=== PATIENT | male | born 1930 | race Caucasian/White ===

== ENCOUNTER 2017-01-12 09:15 | Day surgery (SDC) | payer OTHER ==
[~2017-01-12] VITALS: Ht 175.3 cm; Wt 95.0 kg
[~2017-01-12 09:15] MED LIST: ASPIR 8181 M1 PO; CRESTOR10 MG PO; LOPRESSOR100 M1 PO
[2017-01-12 09:42] VITALS: BP 171/81
[2017-01-12 15:00] VITALS: BP 181/86
[2017-01-12 16:00] VITALS: BP 190/85
[2017-01-12 18:00] VITALS: BP 180/84
== END 2017-01-12 18:29 | disposition home or self-care (01) ==
LOC: SDC 09:15
DX: C67.8 Malignant neoplasm of overlapping sites of bladder (principal); N32.0 Bladder-neck obstruction; N35.9 Urethral stricture, unspecified; N30.40 Irradiation cystitis without hematuria; Z85.46 Personal history of malignant neoplasm of prostate; Z92.3 Personal history of irradiation; Z79.82 Long term (current) use of aspirin; I10 Essential (primary) hypertension; E78.5 Hyperlipidemia, unspecified; Z95.1 Presence of aortocoronary bypass graft
CPT/HCPCS: 88305; J0131; J0690; J2250; J3010; J7050

== ENCOUNTER 2017-11-04 14:24 | Emergency (ER) | payer OTHER ==
[~2017-11-04] VITALS: Ht 172.7 cm; Wt 93.6 kg
[2017-11-04 15:27] LABS: HEMATOCRIT 41.7 % (38.0-50.0); HEMOGLOBIN 14.5 G/DL (12.5-16.6); MCH 31.3 PG (29.0-34.0); MCHC 34.8 G/DL (30.0-36.0); MCV 90.1 FL (86-99); PLATELET COUNT 175 K/uL (156-360); RBC DIS.WIDTH-CV 12.7 % (11.8-14.6); RBC DIS.WIDTH-SD 41.6 % (39-53); RED BLOOD COUNT 4.63 M/uL (4.00-5.50); WHITE BLOOD COUNT 5.7 K/uL (4.1-10.2)
[2017-11-04 15:41] LABS: CHLORIDE 110 mEq/L (99-109); POTASSIUM 3.9 mEq/L (3.7-5.4); SODIUM 142 mEq/L (136-147)
[2017-11-04 15:43] LABS: GLUCOSE 189 mg/dL (70-99)
[2017-11-04 15:47] LABS: CREATININE 1.4 mg/dL (0.6-1.3); GFR ESTIMATE (CALCULATED) 51 mL/min/ (58.99-99999)
[2017-11-04 15:48] LABS: TROP-I INTERPRETATION NEGATIVE; TROPONIN-I < 0.01 ng/mL (0.0-0.30)
[2017-11-04 15:48] LABS: UREA NITROGEN (BUN) 18 mg/dL (9-23)
[2017-11-04 15:55] LABS: PTT 19.3 SEC (25-37)
[2017-11-04 18:30] VITALS: BP 179/82
== END 2017-11-04 19:30 | disposition home or self-care (01) ==
LOC: EME 14:24
PROVIDERS: Emergency Medicine
PROC: 0HQ1XZZ Repair Face Skin, External Approach (ICD-10-PCS; principal; 2017-11-04)
DX: S02.2XXA Fracture of nasal bones, initial encounter for closed fracture (principal); S01.21XA Laceration without foreign body of nose, initial encounter; M25.552 Pain in left hip; W18.30XA Fall on same level, unspecified, initial encounter; E78.5 Hyperlipidemia, unspecified; I10 Essential (primary) hypertension; I25.2 Old myocardial infarction; I73.9 Peripheral vascular disease, unspecified; Z85.46 Personal history of malignant neoplasm of prostate; Z95.1 Presence of aortocoronary bypass graft
CPT/HCPCS: 70450; 73502; 80048; 84484; 85027; 85610; 85730; 93005; 99281; 99285

== ENCOUNTER 2017-11-10 11:50 | Emergency (ER) | payer OTHER ==
[~2017-11-10] VITALS: Ht 167.6 cm; Wt 76.1 kg
[2017-11-10 12:35] VITALS: BP 147/80
== END 2017-11-10 12:36 | disposition home or self-care (01) ==
LOC: EME 11:50
DX: S01.21XD Laceration without foreign body of nose, subsequent encounter (principal); W18.30XD Fall on same level, unspecified, subsequent encounter
CPT/HCPCS: 99281; 99283